=== PATIENT | female | born 1980 | race Caucasian/White ===

== ENCOUNTER 2018-07-07 21:02 | Emergency (ER) | payer SELFPAY ==
[~2018-07-07] VITALS: Ht 165.1 cm; Wt 127.0 kg
[~2018-07-07 21:02] MED LIST: AZIT250T6 PO; BENZ100C PO; PRED50TA PO; PROAIR RESPICL90 MCG IH; PROM118S5 PO
--- NOTE | 2018-07-07 21:50 | PHYS DOC ---
Past Medical History Past Medical History: Hypertension Past Surgical History: Cholecystectomy, , Hysterectomy Alcohol Use: None Drug Use: None Adult General Chief Complaint Chief Complaint: CHEST PAIN HPI HPI Patient is a 38 year old female who presents with left-sided chest pain. This started 30-60 minutes prior to arrival. Started shortly after helping her disabled out of the bath. Reports it's worse with movement as well as deep breaths. No radiation. Patient is taken no medication to help with the discomfort. No significant change with ambulation. Reports that it is moderate in intensity. There has been some diaphoresis, no nausea with the discomfort.[] Review of Systems Review of Systems Constitutional: Denies fever or chills [] Eyes: Denies change in visual acuity, redness, or eye pain [] HENT: Denies nasal congestion or sore throat [] Respiratory: Denies cough or shortness of breath [] Cardiovascular: No additional information not addressed in HPI [] GI: Denies abdominal pain, nausea, vomiting, bloody stools or diarrhea [] : Denies dysuria or hematuria [] Musculoskeletal: Denies back pain or joint pain [] Integument: Denies rash or skin lesions [] Neurologic: Denies headache, focal weakness or sensory changes [] Endocrine: Denies polyuria or polydipsia [] All other systems were reviewed and found to be within normal limits, except as documented in this note. Current Medications Current Medications Current Medications Medications (Trade) Dose Ordered Sig/Catarina Start Time Stop Time Status Last Admin Dose Admin Aspirin (Children'S Aspirin) 324 mg 1X ONCE 07/07/18 22:00 07/07/18 22:01 DC 07/07/18 22:07 324 MG Ketorolac Tromethamine (Toradol 15mg Vial) 15 mg 1X ONCE 07/07/18 22:00 07/07/18 22:01 DC 07/07/18 22:07 15 MG Allergies Allergies Allergies Coded Allergies Type Severity Reaction Last Updated Verified Penicillins Allergy Severe Swelling 06/24/16 Yes lisinopril Allergy Intermediate 07/07/18 Yes Physical Exam Physical Exam Constitutional: Well developed, well nourished, mild discomfort, non-toxic appearance. [] HENT: Normocephalic, atraumatic, bilateral external ears normal, oropharynx moist, no oral exudates, nose normal. [] Eyes: PERRLA, EOMI, conjunctiva normal, no discharge. [] Neck: Normal range of motion, no tenderness, supple, no stridor. [] Cardiovascular:Heart rate regular rhythm, no murmur [] Lungs & Thorax: Bilateral breath sounds clear to auscultation. Left sided upper chest tenderness to palpation, this re-creates the discomfort. [] Abdomen: Bowel sounds normal, soft, no tenderness, no masses, no pulsatile masses. [] Skin: Warm, dry, no erythema, no rash. [] Back: No tenderness, no CVA tenderness. [] Extremities: No tenderness, no cyanosis, no clubbing, ROM intact, no edema. [] Neurologic: Alert and oriented X 3, normal motor function, normal sensory function, no focal deficits noted. [] Psychologic: Affect normal, judgement normal, mood normal. [] Current Patient Data Vital Signs Vital Signs Date Time Temp Pulse Resp B/P (MAP) Pulse Ox O2 Delivery O2 Flow Rate FiO2 07/07/18 21:27 98.0 85 18 157/102 (120) 99 Room Air 98.0 Lab Values Laboratory Tests Test 07/07/18 21:40 07/07/18 22:00 07/07/18 22:40 White Blood Count 8.3 x10^3/uL (4.0-11.0) Red Blood Count 4.69 x10^6/uL (3.50-5.40) Hemoglobin 13.3 g/dL (12.0-15.5) Hematocrit 38.8 % (36.0-47.0) Mean Corpuscular Volume 83 fL (79-100) Mean Corpuscular Hemoglobin 28 pg (25-35) Mean Corpuscular Hemoglobin Concent 34 g/dL (31-37) Red Cell Distribution Width 12.6 % (11.5-14.5) Platelet Count 359 x10^3/uL (140-400) Neutrophils (%) (Auto) 53 % (31-73) Lymphocytes (%) (Auto) 37 % (24-48) Monocytes (%) (Auto) 7 % (0-9) Eosinophils (%) (Auto) 2 % (0-3) Basophils (%) (Auto) 1 % (0-3) Neutrophils # (Auto) 4.4 x10^3uL (1.8-7.7) Lymphocytes # (Auto) 3.0 x10^3/uL (1.0-4.8) Monocytes # (Auto) 0.6 x10^3/uL (0.0-1.1) Eosinophils # (Auto) 0.2 x10^3/uL (0.0-0.7) Basophils # (Auto) 0.1 x10^3/uL (0.0-0.2) Urine Collection Type Unknown Urine Color Yellow Urine Clarity Clear Urine pH 7.5 Urine Specific [place] 1.020 Urine Protein Negative mg/dL (NEG-TRACE) Urine Glucose (UA) Negative mg/dL (NEG) Urine Ketones (Stick) Negative mg/dL (NEG) Urine Blood Negative (NEG) Urine Nitrite Negative (NEG) Urine Bilirubin Negative (NEG) Urine Urobilinogen Dipstick 1.0 mg/dL (0.2 mg/dL) Urine Leukocyte Esterase Negative (NEG) Urine RBC Occ /HPF (0-2) Urine WBC 1-4 /HPF (0-4) Urine Squamous Epithelial Cells Mod /LPF Urine Bacteria Many /HPF (0-FEW) Urine Mucus Mod /LPF Prothrombin Time 13.3 SEC (11.7-14.0) Prothrombin Time INR 1.0 (0.8-1.1) D-Dimer (Saray) 0.31 ug/mlFEU (0.00-0.50) Sodium Level 138 mmol/L (136-145) Potassium Level 4.6 mmol/L (3.5-5.1) Chloride Level 102 mmol/L (98-107) Carbon Dioxide Level 26 mmol/L (21-32) Anion Gap 10 (6-14) Blood Urea Nitrogen 13 mg/dL (7-20) Creatinine 0.6 mg/dL (0.6-1.0) Estimated GFR (Cockcroft-Gault) 110.7 BUN/Creatinine Ratio 22 (6-20) H Glucose Level 112 mg/dL (70-99) H Calcium Level 9.8 mg/dL (8.5-10.1) Magnesium Level 2.2 mg/dL (1.8-2.4) Total Bilirubin 0.3 mg/dL (0.2-1.0) Aspartate Amino Transferase (AST) 28 U/L (15-37) Alanine Aminotransferase (ALT) 69 U/L (14-59) H Alkaline Phosphatase 59 U/L (46-116) Troponin I Quantitative < 0.017 ng/mL (0.000-0.055) Total Protein 7.5 g/dL (6.4-8.2) Albumin 3.5 g/dL (3.4-5.0) Albumin/Globulin Ratio 0.9 (1.0-1.7) L Laboratory Tests 07/07/18 21:40 Laboratory Tests 07/07/18 22:40 EKG EKG EKG shows a sinus rhythm at 88 bpm, normal axis, QTC of 451 ms, no ST elevation , nonspecific ST-T wave changes. No old EKG available for comparison.[] Radiology/Procedures Radiology/Procedures Chest x-ray shows no evidence of infiltrate, no effusion, no pneumothorax[] Course & Med Decision Making Course & Med Decision Making Pertinent Labs and Imaging studies reviewed. (See chart for details) ED course: Patient arrived, was placed in bed, in tolerated exam well. Patient did achieve significant relief with ketorolac. After the return of the lab and imaging studies, these were discussed with the patient who voiced understanding. All questions were answered. Medical decision making: There is no evidence of an ST elevation VT, no pneumonia, no pneumothorax, no evidence of acute coronary syndrome, no dissecting thoracic aneurysm, no esophageal rupture. Patient's heart score is 2, , with 1 POINT turned for one to 2 risk factorshypertension and BMI, and 1POINT returned for nonspecific EKG changes, putting her at low risk. Discussed this with the patient who voiced understanding of need for close follow-up with her primary care physician.[] Dragon Disclaimer Dragon Disclaimer This electronic medical record was generated, in whole or in part, using a voice recognition dictation system. Departure Departure Impression: Primary Impression: Chest pain Disposition: HOME, SELF-CARE Condition: GOOD Referrals: ALIVIA MCPHERSON MD (PCP) Follow-up in 2 days. Patient Instructions: Chest Pain (Nonspecific) Additional Instructions: Follow-up with your regular doctor in 2 days. Take your medication as prescribed. Return to the ER if worsening chest discomfort or any other concerns. Scripts Meloxicam (MELOXICAM) 7.5 Mg Tablet 7.5 MG PO DAILY, #20 TAB Prov: WIL OSORIO DO 07/07/18 Problem Qualifiers Primary Impression: Chest pain Chest pain type: unspecified Qualified Codes: R07.9 - Chest pain, unspecified WIL OSORIO DO Jul 07, 2018 21:50
[2018-07-07 21:52] LABS: BASO # 0.1 x10^3/uL (0.0-0.2); BASO % 1 % (0-3); EOS # 0.2 x10^3/uL (0.0-0.7); EOS % 2 % (0-3); HEMATOCRIT 38.8 % (36.0-47.0); HEMOGLOBIN 13.3 g/dL (12.0-15.5); LYMPH % 37 % (24-48); MEAN CORPUSCULAR HEMOGLOBIN 28 pg (25-35); MEAN CORPUSCULAR HGB CONC 34 g/dL (31-37); MEAN CORPUSCULAR VOLUME 83 fL (79-100); MONO # 0.6 x10^3/uL (0.0-1.1); MONO % 7 % (0-9); NEUT # 4.4 x10^3uL (1.8-7.7); NEUT % 53 % (31-73); PLATELET COUNT 359 x10^3/uL (140-400); RED BLOOD COUNT 4.69 x10^6/uL (3.50-5.40); RED CELL DISTRIBUTION WIDTH 12.6 % (11.5-14.5); WHITE BLOOD COUNT 8.3 x10^3/uL (4.0-11.0)
[2018-07-07] MEDS ORDERED: ASPIRIN CHEWABLE 81 MG TABLET. PO ONE (22:00)
[2018-07-07] MEDS ORDERED: KETOROLAC 15 MG/ML VIAL. IV ONE (22:00)
[2018-07-07 22:17] LABS: BILIRUBIN,URINE NEGATIVE (NEG); CLARITY,URINE CLEAR; COLOR,URINE YELLOW; NITRITE,URINE NEGATIVE (NEG); PH,URINE 7.5; PROTEIN,URINE NEGATIVE (NEG-TRACE)
[2018-07-07 22:33] LABS: BACTERIA,URINE MANY /HPF (0-FEW); RBC,URINE OCC /HPF (0-2); SQUAMOUS EPITHELIAL CELL,UR MOD /LPF
[2018-07-07 23:04] LABS: CALCIUM 9.8 mg/dL (8.5-10.1); CREATININE 0.6 mg/dL (0.6-1.0); GFR 110.7; POTASSIUM 4.6 mmol/L (3.5-5.1)
[2018-07-07 23:06] LABS: PROTHROMBIN TIME PATIENT 13.3 SEC (11.7-14.0)
[2018-07-07 23:10] LABS: ALBUMIN 3.5 g/dL (3.4-5.0); ALBUMIN/GLOBULIN RATIO 0.9 (1.0-1.7); MAGNESIUM 2.2 mg/dL (1.8-2.4); TOTAL BILIRUBIN 0.3 mg/dL (0.2-1.0); TOTAL PROTEIN 7.5 g/dL (6.4-8.2)
[2018-07-07 23:34] LABS: D-DIMER 0.31 ug/mlFEU (0.00-0.50)
[2018-07-07 23:45] VITALS: BP 143/67
[2018-07-07] MEDS ORDERED: MELO7.5T29 PO (23:45)
--- NOTE | 2018-07-08 00:07 | RAD ---
CHEST PA LATERAL History: left-sided chest pain Comparison: Two-view chest June 24, 2016. Findings: The cardiomediastinal silhouette is normal. Pulmonary vasculature is normal. The lungs are clear. No pleural effusion or pneumothorax is seen. There is no acute bone abnormality. IMPRESSION: No acute cardiopulmonary process. Electronically signed by: Arvind Dominguez MD (07/08/2018 12:02 AM) [facility]
--- NOTE | 2018-07-08 09:46 | EKG ---
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
== END 2018-07-08 | disposition home or self-care (01) ==
LOC: ER 21:02
DX: R07.89 Other chest pain (principal); I10 Essential (primary) hypertension; Z90.49 Acquired absence of other specified parts of digestive tract; Z90.710 Acquired absence of both cervix and uterus; Z98.890 Other specified postprocedural states; Z88.0 Allergy status to penicillin; Z88.8 Allergy status to other drugs, medicaments and biological substances
CPT/HCPCS: 36415; 71046; 80053; 81001; 83735; 84484; 85025; 85379; 85610; 87086; 93005; 96374; 99284; J1885

== ENCOUNTER 2018-08-01 10:58 | Emergency (ER) | payer SELFPAY ==
[~2018-08-01] VITALS: Ht 162.6 cm; Wt 124.7 kg
[~2018-08-01 10:58] MED LIST changes: +MELO7.5T29 PO
[2018-08-01 11:35] VITALS: BP 143/103
[2018-08-01] MEDS ORDERED: IPRATRPIUM/ALBUTEROL 0.5/2.5MG 3 ML NEBU. NEB ONE (12:00)
[2018-08-01] MEDS ORDERED: predniSONE 10 MG TABLET PO ONE (12:00)
--- NOTE | 2018-08-01 12:55 | RAD ---
EXAM: Chest, 2 views. HISTORY: Cough. COMPARISON: 07/07/2018 FINDINGS: 2 views of the chest are obtained. There is no infiltrate, pleural effusion or pneumothorax. The heart is normal in size. IMPRESSION: No acute pulmonary finding. Electronically signed by: Charito Soto MD (08/01/2018 12:50 PM) [facility]
[2018-08-01] MEDS ORDERED: DOXY100C2 PO (13:19)
[2018-08-01] MEDS ORDERED: PRED50TA PO (13:19)
[2018-08-01] MEDS ORDERED: PROM118S5 PO (13:21)
[2018-08-01] MEDS ORDERED: ALBU2.5V8 INH (13:21)
--- NOTE | 2018-08-01 13:22 | PHYS DOC ---
Past Medical History Past Medical History: Hypertension Past Surgical History: Cholecystectomy, , Hysterectomy Alcohol Use: None Drug Use: None Adult General Chief Complaint Chief Complaint: SORE THROAT HPI HPI Patient is a 38 year old [f__sex] who presents with [] Review of Systems Review of Systems Constitutional: Denies fever or chills [] Eyes: Denies change in visual acuity, redness, or eye pain [] HENT: Denies nasal congestion or sore throat [] Respiratory: Denies cough or shortness of breath [] Cardiovascular: No additional information not addressed in HPI [] GI: Denies abdominal pain, nausea, vomiting, bloody stools or diarrhea [] : Denies dysuria or hematuria [] Musculoskeletal: Denies back pain or joint pain [] Integument: Denies rash or skin lesions [] Neurologic: Denies headache, focal weakness or sensory changes [] Endocrine: Denies polyuria or polydipsia [] All other systems were reviewed and found to be within normal limits, except as documented in this note. Current Medications Current Medications Current Medications Medications (Trade) Dose Ordered Sig/Catarina Start Time Stop Time Status Last Admin Dose Admin Albuterol/ Ipratropium (Duoneb) 3 ml 1X ONCE 08/01/18 12:00 08/01/18 12:04 DC 08/01/18 12:11 3 ML Prednisone (Prednisone) 50 mg 1X ONCE 08/01/18 12:00 08/01/18 12:04 DC 08/01/18 12:11 50 MG Allergies Allergies Allergies Coded Allergies Type Severity Reaction Last Updated Verified Penicillins Allergy Severe Swelling 06/24/16 Yes lisinopril Allergy Intermediate 07/07/18 Yes Physical Exam Physical Exam Constitutional: Well developed, well nourished, no acute distress, non-toxic appearance. [] HENT: Normocephalic, atraumatic, bilateral external ears normal, oropharynx moist, no oral exudates, nose normal. [] Eyes: PERRLA, EOMI, conjunctiva normal, no discharge. [] Neck: Normal range of motion, no tenderness, supple, no stridor. [] Cardiovascular:Heart rate regular rhythm, no murmur [] Lungs & Thorax: Bilateral breath sounds clear to auscultation [] Abdomen: Bowel sounds normal, soft, no tenderness, no masses, no pulsatile masses. [] Skin: Warm, dry, no erythema, no rash. [] Back: No tenderness, no CVA tenderness. [] Extremities: No tenderness, no cyanosis, no clubbing, ROM intact, no edema. [] Neurologic: Alert and oriented X 3, normal motor function, normal sensory function, no focal deficits noted. [] Psychologic: Affect normal, judgement normal, mood normal. [] Current Patient Data Vital Signs Vital Signs Date Time Temp Pulse Resp B/P (MAP) Pulse Ox O2 Delivery O2 Flow Rate FiO2 08/01/18 12:14 Room Air 08/01/18 11:35 97.9 78 16 143/103 (116) 97 97.9 EKG EKG [] Radiology/Procedures Radiology/Procedures [] Course & Med Decision Making Course & Med Decision Making Pertinent Labs and Imaging studies reviewed. (See chart for details) [] Dragon Disclaimer Dragon Disclaimer This electronic medical record was generated, in whole or in part, using a voice recognition dictation system. Departure Departure Impression: Primary Impression: Acute bronchitis Disposition: HOME, SELF-CARE Condition: STABLE Referrals: NO PCP (PCP) Patient Instructions: Bronchitis Additional Instructions: Take the medications as prescribed. Follow-up with your primary care provider in 4 days if not improving or return to the emergency department if worsening. Scripts Promethazine Hcl/Codeine (PROMETHAZINE-CODEINE SYRUP) 118 Ml Syrup 5 ML PO Q4-6HRS for cough, #120 ML Prov: OBI CORONADO APRN 08/01/18 Albuterol Sulfate (Proair Hfa) 8.5 Gm Hfa.aer.ad 1 PUFF INH PRN Q6HRS PRN for SHORTNESS OF BREATH, #1 INHALER Prov: OBI CORONADO APRN 08/01/18 Prednisone (PREDNISONE) 50 Mg Tablet 1 TAB PO DAILY for bronchitis, #5 TAB Prov: OBI CORONADO APRN 08/01/18 Doxycycline Hyclate (DOXYCYCLINE HYCLATE) 100 Mg Capsule 1 CAP PO BID for bronchitis, #20 CAP Prov: OBI CORONADO APRN 08/01/18 OBI CORONADO APRN Aug 01, 2018 13:22
== END 2018-08-01 13:32 | disposition home or self-care (01) ==
LOC: ER 10:58
DX: J20.9 Acute bronchitis, unspecified (principal); I10 Essential (primary) hypertension; Z88.0 Allergy status to penicillin; Z88.8 Allergy status to other drugs, medicaments and biological substances
CPT/HCPCS: 71046; 94640; 99283; J7512; J7620